=== PATIENT | male | born 1990 | race Hispanic/Latino ===

== ENCOUNTER 2019-06-03 03:29 | Emergency (ER) | payer MEDICAID ==
[2019-06-03] MEDS ORDERED: IBUPROFEN 800 MG TAB ONE (03:50)
[2019-06-03 04:58] LABS: APPEARANCE,URINE Clear (CLEAR); BILIRUBIN,URINE Negative (NEGATIVE); COLOR,URINE Dark Yellow (YELLOW); GLUCOSE, URINE (UA) Negative (NEGATIVE); KETONES,URINE Negative (NEGATIVE); LEUKOCYTE ESTERASE ,URINE Trace (NEGATIVE); NITRATE,URINE Negative (NEGATIVE); OCCULT BLOOD,URINE Negative (NEGATIVE); PH,URINE 7.5 (5.0-8.0); PROTEIN,URINE Trace mg/dL (NEGATIVE)
[2019-06-03] MEDS ORDERED: CEFTRIAXONE SODIUM 2 GM VIAL ONE (05:04)
[2019-06-03] MEDS ORDERED: SODIUM CHLORIDE 0.9% 50 ML IV ONE (05:05)
[2019-06-03] MEDS ORDERED: SODIUM CHLORIDE 0.9% 1000ML 1,000 ML IV ONE (05:05)
[2019-06-03 05:10] LABS: BASOPHILS % (AUTO) 0.6 % (0.0-5.0); EOSINOPHILS % (AUTO) 0.8 % (0.0-8.0); HEMATOCRIT 40.8 % (42-54); LYMPHOCYTES % (AUTO) 15.1 % (21.0-51.0); MEAN CORPUSCULAR HEMOGLOBIN 29.4 pg (27.0-33.0); MEAN CORPUSCULAR VOLUME 84.1 fL (79-99); MONOCYTES % (AUTO) 13.6 % (3.0-13.0); NEUTROPHILS % (AUTO) 69.9 % (40.0-77.0); PLATELET COUNT (AUTO) 189 K/uL (130-400); RED BLOOD CELL COUNT(AUTO) 4.86 MIL/uL (4.50-6.20); WHITE BLOOD COUNT (AUTO) 11.7 K/uL (4.8-10.8)
[2019-06-03 05:14] LABS: BACTERIA,URINE Few /HPF (None Seen); MUCUS,URINE Moderate LPF (None Seen); RBC,URINE 0-1 /HPF (0-1); SQUAMOUS EPITHELIAL CELL,UR 0-2 /HPF (0-2)
[2019-06-03 05:26] LABS: INR 1.05 (0.85-1.15); PARTIAL THROMBOPLASTIN TIME 28.5 SEC (26.3-35.5)
[2019-06-03 05:27] LABS: CARBON DIOXIDE 25 mmol/L (21-32); CHLORIDE 105 mmol/L (101-111); GLOMERULAR FILTR. RATE CALC 96 mL/min (>60); GLUCOSE,RANDOM 122 mg/dL (70-105); POTASSIUM 3.6 mmol/L (3.5-5.1); SODIUM SERUM 140 mmol/L (136-145); UREA NITROGEN, BLOOD 10 mg/dL (7-18)
[2019-06-03 05:39] LABS: ALANINE AMINOTRANSFERASE 36 U/L (12-78); ALBUMIN 3.8 g/dL (3.5-5.0); ASPARTATE AMINOTRANSFERASE 25 U/L (10-37); BILIRUBIN,TOTAL 0.6 mg/dL (0.2-1.0); CREATINE KINASE, TOTAL 224 U/L (21-232); MYOGLOBIN 65 ng/mL (10-92); TOTAL PROTEIN, SERUM 7.5 g/dL (6.0-8.3); TROPONIN I < 0.04 ng/mL (0.00-0.06)
== END 2019-06-03 05:48 | disposition home or self-care (01) ==
LOC: EDH 03:29
DX: B34.9 Viral infection, unspecified (principal); R51 Headache
CPT/HCPCS: 36415; 71045; 80053; 81001; 82550; 83605; 83874; 84145; 84484; 85025; 85610; 85730; 87040 ×2; 87804 ×2; 93005; 96374; 99285; J0696; J7030

== ENCOUNTER 2023-02-17 09:31 | Emergency (ER) | payer MEDICAID ==
[~2023-02-17] VITALS: Ht 188 cm; Wt 121.1 kg
[2023-02-17 10:47] VITALS: BP 136/88
== END 2023-02-17 11:16 | disposition home or self-care (01) ==
LOC: EDH 09:31
DX: T16.2XXA Foreign body in left ear, initial encounter (principal); I10 Essential (primary) hypertension; X58.XXXA Exposure to other specified factors, initial encounter; Y93.89 Activity, other specified; Y92.89 Other specified places as the place of occurrence of the external cause; Y99.8 Other external cause status
CPT/HCPCS: 69200

== ENCOUNTER 2025-06-07 21:26 | Emergency (ER) | payer SELFPAY ==
[~2025-06-07] VITALS: Ht 188 cm; Wt 99.8 kg
[2025-06-07] MEDS: LACTATED RINGERS 1000ML IV STA (21:56)
[2025-06-07 21:58] LABS: IMMATURE GRANULOCYTE ABSOLUTE 0.03 K/uL (0-1); NUCLEATED RED BLOOD CELLS 0.0 % (0.0-0.19); PLATELET COUNT (AUTO) 236 K/uL (130-400); RED BLOOD CELL COUNT(AUTO) 5.40 MIL/uL (4.50-6.20); RED CELL DISTRIBUTION WIDTH 13.1 % (11.0-15.5); WHITE BLOOD COUNT (AUTO) 10.8 K/uL (4.8-10.8)
[2025-06-07 22:12] LABS: CREATININE 0.9 mg/dL (0.5-1.3); GLOMERULAR FILTR. RATE CALC 116.0 mL/min (>90); GLUCOSE,RANDOM 101.0 mg/dL (70-105); SODIUM SERUM 143.0 mmol/L (136-145); UREA NITROGEN, BLOOD 12.0 mg/dL (7-18)
--- NOTE | 2025-06-07 23:03 | ERN ---
General Chief Complaint: Abdominal Pain Stated Complaint: ABD PAIN Time Seen by MD: 21:31 History of Present Illness Initial Comments Patient is a 34-year-old male with a history of obesity and hypertension. He states he is on a clinical trial with a GLP 1 inhibitor and it has decreased his weight and also his hypertension. He comes in with abdominal pain associated with nausea and vomiting for the last 8 hours. The pain comes and goes with the frequency of 30 minutes and when the pain is there it lasts for about 2 minutes. He says he has burping but is not passing gas. He has had no prior surgeries. Allergies: Coded Allergies: No Known Allergies (Unverified Allergy, Unknown, 06/03/19) Past Medical History Past Medical History: Other Medical History Other: GASTRITIS Past Surgical History: None Constitutional: (-) chills, (-) diaphoresis, (-) fever, (-) malaise, (-) weakness, (-) other documentation EENTM: (-) eye pain, (-) blurred vision, (-) tearing, (-) double vision, (-) ear pain, (-) ear discharge, (-) nose pain, (-) nose congestion, (-) throat pain, (-) Throat swelling, (-) mouth pain, (-) tooth pain, (-) mouth swelling, (-) other documentation Respiratory: (-) cough, (-) orthopnea, (-) short of breath, (-) stridor, (-) wheezing, (-) other documentation Cardiovascular: (-) chest pain, (-) edema, (-) palpitations, (-) syncope, (-) dyspnea on exertion, (-) other documentation Gastrointestinal/Abdominal: (+) nausea, (+) vomiting, (+) constipation Genitourinary: (-) penile discharge, (-) dysuria, (-) frequency, (-) hematuria, (-) pain, (-) other documentation Musculoskeletal: (-) Neck pain, (-) back pain, (-) Flank Pain, (-) joint pain, (-) joint swelling, (-) muscle pain, (-) muscle stiffness, (-) gout, (-) other documentation Skin: (-) laceration, (-) contusion, (-) abrasion, (-) abscess, (-) rash, (-) change in color, (-) change in hair, (-) change in nails, (-) diaphoresis, (-) dryness, (-) other documentation Neuro: (-) altered mental status, (-) headache, (-) syncope, (-) paralysis, (-) numbness, (-) seizure, (-) pre-existing deficit, (-) tremors, (-) weakness, (-) dizziness, (-) slurred speech, (-) vertigo, (-) other documentation Physical Exam General Appearance: (+) mild distress Orientation: (+) alert, (+) oriented x 3 Head/Face Trauma: No Eye: bilateral eye normal inspection, bilateral eye PERRL, bilateral eye EOMI Ear, Nose, Throat: (+) hearing grossly normal, (+) normal ENT inspection, (+) moist mucous membraine Neck: (+) normal inspection, (+) supple, (+) full range of motion Respiratory: (+) chest non-tender, (+) lungs clear, (+) well ventilated Heart: (+) regular, (+) no gallop Vascular: (+) no edema, (+) normal peripheral pulse Gastrointestinal: (+) soft, (+) bowel sound present, (+) tender Results Laboratory and Microbiology Lab and Micro Result Laboratory Tests Test 06/07/25 21:52 White Blood Count 10.8 K/uL (4.8-10.8) Red Blood Count 5.40 MIL/uL (4.50-6.20) Hemoglobin 15.7 g/dL (14.0-18.0) Hematocrit 44.1 % (42-54) Mean Corpuscular Volume 81.7 fL (79-99) Mean Corpuscular Hemoglobin 29.1 pg (27.0-33.0) Mean Corpuscular Hemoglobin Concent 35.6 g/dL (32.0-36.0) Red Cell Distribution Width 13.1 % (11.0-15.5) Platelet Count 236 K/uL (130-400) Mean Platelet Volume 11.6 fL (7.5-10.5) H Immature Granulocyte % (Auto) 0.3 % (0-1) Neutrophils (%) (Auto) 81.4 % (40.0-77.0) H Lymphocytes (%) (Auto) 11.9 % (21.0-51.0) L Monocytes (%) (Auto) 5.5 % (3.0-13.0) Eosinophils (%) (Auto) 0.3 % (0.0-8.0) Basophils (%) (Auto) 0.6 % (0.0-5.0) Neutrophils # (Auto) 8.8 K/uL (1.8-7.7) H Lymphocytes # (Auto) 1.3 K/uL (1.0-4.8) Monocytes # (Auto) 0.6 K/uL (0.1-1.0) Eosinophils # (Auto) 0.03 K/uL (0.00-0.70) Basophils # (Auto) 0.07 K/uL (0.00-0.20) Absolute Immature Granulocyte (auto 0.03 K/uL (0-1) Nucleated Red Blood Cells 0.0 % (0.0-0.19) Sodium Level 143 mmol/L (136-145) Potassium Level 3.6 mmol/L (3.5-5.1) Chloride Level 105 mmol/L (101-111) Carbon Dioxide Level 28 mmol/L (21-32) Blood Urea Nitrogen 12 mg/dL (7-18) Creatinine 0.9 mg/dL (0.5-1.3) Glomerular Filtration Rate Calc 116 mL/min (>90) Random Glucose 101 mg/dL (70-105) Total Calcium 8.9 mg/dL (8.5-10.1) MDM MDM: Differential diagnosis: Constipation, dysmotility secondary to the GLP-1 , de hydration, muscle spasms, Rationale: Tests considered and ordered secondary to shared decision making include: Previous outside records reviewed: Old ER visits. Risk of complication and/or morbidity or mortality of patient management: None Medications-Per medication reconciliation Need for hospitalization: Patient does meet criteria for hospitalization. Need for emergency major/minor surgery: No There are no social concerns with this patient. Prescription drug management Prescriptions will include symptomatic care Patient's prior external medical records from other ER visits were reviewed by me as indicated. Prior testing and results from previous visits were reviewed. Prior tests were taken into account with medical decision making and resource utilization, independent historian/historians were used to obtain complete medical history. I independently interpreted the test that were performed, results were reviewed by me and considered findings on radiology if ordered. Patient's laboratory analysis was unrevealing. Leukocytosis. Chemistry panel normal. KUB showed constipation. CT scan confirmed the diagnosis. There was fecalization of small bowel and stomach. No impaction. No free air no signs of obstruction. ED Course Orders Procedure Category Date Status Time Abd 1vw RAD 06/07/25 Resulted 21:48 Basic Metabolic Panel LAB 06/07/25 Complete 21:48 Cbc With Differential LAB 06/07/25 Complete 21:48 Lactated Ringers PHA 06/07/25 Complete 1000ml (Lactated 21:48 Ct Abdomen/Pelvis CT 06/07/25 Taken W/Wo Contras 22:44 Ketorolac PHA 06/07/25 Complete Tromethamine 30mg/Ml 23:00 Iohexol (Omnipaque) PHA 06/07/25 Complete 23:45 Current Medications Medications (Trade) Dose Ordered Sig/Harlan Route PRN Reason Start Time Stop Time Status Last Admin Dose Admin Iohexol (Omnipaque) 75 ml STK-MED ONCE IV 06/07/25 23:45 06/07/25 23:45 DC Ketorolac Tromethamine (toRADol) 30 mg ONCE ONCE IVP 06/07/25 23:00 06/07/25 23:01 DC 06/07/25 23:22 Lactated Ringer's (Lactated Ringers 1000ml) 1,000 ml BOLUS STAT IV 06/07/25 21:48 06/07/25 21:51 DC 06/07/25 21:56 Vital Signs Date Time Temp Pulse Resp B/P (MAP) Pulse Ox O2 Delivery O2 Flow Rate FiO2 06/07/25 21:42 99.5 89 20 149/98 98 Room Air* 0 21 06/07/25 21:27 99.7 94 20 139/94 99 Room Air DX & DISP Disposition: Discharge Departure Impression: Primary Impression: Constipation by delayed colonic transit Additional Impression: Constipation Condition: Stable Additional Instructions: Your abdominal pain pattern is consistent with constipation and are laboratory studies and radiological imaging born that out. It could be reflexion of the GLP 1 medication that you are taking or it could be related to diet. In either case you can take magnesium citrate which will evacuate your bowels thoroughly or you can take GoLYTELY which is a powder that you drink each night with some liquid and that will help you soften and move your bowels as well. Both are available [id number]. Please follow-up with your primary care physician or the trial physicians to discuss your constipation and see if they have things that they can recommend. Referrals: JAZMINE ATKINS MD (PCP) VALERIANO MUELLER MD Jun 07, 2025 23:03
--- NOTE | 2025-06-07 23:20 | HMCIMG ---
EXAM: CR Abdomen, 3 views. CLINICAL HISTORY: Pain. COMPARISON: None provided. FINDINGS: Nonobstructed nonspecific bowel gas pattern. A component of mild constipation is present in the colon. 0.7 cm focal calcification around the expected location of the right pelviureteric junction, concerning her right pelviureteric junction calculus. No free air is evident. No aggressive appearing osseous lesion. IMPRESSION: A component of mild constipation is present in the colon. Questionable calculus around the right pelvic junction. Recommend a noncontrast CT scan of the abdomen and pelvis for an optimal evaluation. /[place]
[2025-06-07] MEDS ORDERED: IOHEXOL-350 75 ML VIAL IV ONE (23:45)
[2025-06-08 00:24] VITALS: BP 141/85; PULSE 85; RESP 18; TEMP 98.9; O2SAT 98
--- NOTE | 2025-06-08 00:48 | HMCIMG ---
EXAM: CT Abdomen and Pelvis without and with IV contrast. CLINICAL HISTORY: Abdominal pain. TECHNIQUE: Thin collimated axial CT images of the abdomen and pelvis without and with IV contrast were obtained, with sagittal and coronal reformatted images also submitted. A CT scan is done according to ALARA (As Low As Reasonably Achievable). COMPARISON: None. FINDINGS: Mild subsegmental atelectasis in the right lung base. No focal abnormality within the liver, gallbladder, pancreas, spleen, or adrenals. Mild splenomegaly. Bilateral small nonobstructing renal calculi measuring up to 4 mm. An 8 mm obstructive calculus at the right pelviureteric junction with mild hydronephrosis in the right kidney. There is no obvious bowel wall thickening. Bowel loops are normal in caliber without evidence of obstruction or ileus. The appendix is normal. There is no abnormality within the urinary bladder. Unremarkable reproductive organs. Abdominal and pelvic vessels are patent. No lymphadenopathy. No free fluid. There is no acute osseous abnormality. IMPRESSIONS: An 8 mm calculus at the right pelviureteric junction with mild back pressure changes. Bilateral nonobstructive renal calculi. /[place]
== END 2025-06-08 00:37 | disposition home or self-care (01) ==
LOC: EDH 21:26
DX: K59.01 Slow transit constipation (principal); E66.9 Obesity, unspecified; I10 Essential (primary) hypertension
CPT/HCPCS: 99285; 74178; 96374; 96361; 80048; 85025; 36415; 74018; J1885; J7120; Q9967